=== PATIENT | male | born 1975 | race Caucasian/White ===

== ENCOUNTER 2017-02-13 21:55 | Observation (INO) | payer MEDICAID ==
[~2017-02-13] VITALS: Ht 165.1 cm; Wt 65.2 kg
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
[2017-02-13 22:29] LABS: BASOPHIL % 0.4 %; EOSINOPHIL # 0.1 K/uL (0.0-0.5); HEMATOCRIT 48.2 % (37.0-53.0); HEMOGLOBIN 17.6 g/dL (12.0-17.0); IMMATURE GRANULOCYTE % 0.3 %; LYMPHOCYTE # 1.8 K/uL (0.8-4.0); LYMPHOCYTE % 18.1 %; MCH 32.9 pg (27.0-34.0); MCHC 36.5 gm/dL (32.0-36.5); MCV 90.1 fl (83.0-98.0); MONOCYTE # 0.7 K/uL (0.0-1.0); MONOCYTE % 6.5 %; NEUTROPHIL # (ANC) 7.5 K/uL (1.4-9.0); NEUTROPHIL % 73.7 %; NRBC % 0 /100WBC (0-0.00); PLATELET COUNT 225 K/uL (150-450); RBC 5.35 M/uL (4.00-6.00); RDW-CV 11.3 % (11.9-14.6); WBC 10.2 K/uL (4.0-11.0)
[2017-02-13 22:45] LABS: ALK PHOS 81 IU/L (33-138); ALT 26 IU/L (12-78); ANION GAP 12.7 (10.0-19.0); AST 21 IU/L (10-40); BLOOD UREA NITROGEN 14 mg/dL (6-24); CALCIUM 8.7 mg/dL (8.5-10.5); CHLORIDE 105 mMol/L (96-110); CO2 24 mMol/L (22-32); ESTIMATED GFR (MDRD EQUATION) > 60; POTASSIUM 3.7 mMol/L (3.7-5.1); SODIUM 138 mMol/L (135-145); TOTAL BILIRUBIN 0.9 mg/dL (0.0-1.5); TOTAL PROTEIN 7.6 g/dL (6.0-8.4)
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
== END 2017-02-14 12:48 | disposition disaster alternative care site (69) ==
LOC: GACC 21:55 → GPCU 23:38
PROVIDERS: Emergency Medicine; ADMIT Family Medicine
DX: T21.21XA Burn of second degree of chest wall, initial encounter (principal); T20.27XA Burn of second degree of neck, initial encounter; T23.272A Burn of second degree of left wrist, initial encounter; T23.271A Burn of second degree of right wrist, initial encounter; G89.29 Other chronic pain; M54.9 Dorsalgia, unspecified; F17.210 Nicotine dependence, cigarettes, uncomplicated; Z98.890 Other specified postprocedural states; Z99.3 Dependence on wheelchair; X12.XXXA Contact with other hot fluids, initial encounter
CPT/HCPCS: G0378; J1170; J2270

== ENCOUNTER → 2017-02-13 | Outpatient (CLI) | payer MEDICAID | END | disposition disaster alternative care site (69) | LOC: GAMB 21:40 | DX: T21.01XA Burn of unspecified degree of chest wall, initial encounter (principal); T22.00XA Burn of unspecified degree of shoulder and upper limb, except wrist and hand, unspecified site, initial encounter; T23.009A Burn of unspecified degree of unspecified hand, unspecified site, initial encounter; T20.07XA Burn of unspecified degree of neck, initial encounter; T31.10 Burns involving 10-19% of body surface with 0% to 9% third degree burns; M21.379 Foot drop, unspecified foot; R07.89 Other chest pain; X12.XXXA Contact with other hot fluids, initial encounter | CPT/HCPCS: A0425; A0427; J2270 ==